=== PATIENT | female | born 1965 | race Caucasian/White ===

== ENCOUNTER 2023-01-29 10:03 | Outpatient (AMB) | payer OTHER, SELFPAY ==
[2023-01-29 10:11] VITALS: PULSE 77; RESP 12; O2SAT 95; BMI 44.5
--- NOTE | 2023-01-29 10:11 | A.OFFVIS_ITS ---
Intake Vital Signs 01/29/23 10:11 Height 5 ft 7 in Weight 284 lb BMI 44.5 Blood Pressure Location Lt brachial Position Sitting Respiration 12 Pulse 77 Pulse Source Pulse Oximeter Pulse Oximetry (%) 95 Oxygen Delivery Method Room Air Intake Visit Reasons: L4-L5 Back Pain / Chronic LT Lumbar Radic / Conf Allergies No Known Allergies Allergy (Verified 01/29/23 10:12) Medication List - Last Reconciled 01/29/23 by Rosalinda Correa LPN alendronate 70 mg PO QWEEK amlodipine 5 mg PO DAILY hydrochlorothiazide 12.5 mg PO DAILY losartan 100 mg PO DAILY tramadol 50 mg PO Q6H PRN HPI L4-L5 Back Pain / Chronic LT Lumbar Radic / Conf HPI Details 57-year-old female who presents today to the office for an evaluation of back pain. She reports constant lower back pain. She had L4 kyphoplasty done by Dr. Escobar last year, which provided relief for about two months. She has difficulty getting up from a bending position. She has difficulty lifting any weight from the ground. Her pain alleviates with standing but worsens with sitting down. She had an MRI scan at [facility]. She did completed physical therapy this year that was not helpful. She has a history of carpal tunnel and underwent EMG on 10/18/22 and was given braces but she is not using it. She is using CPAP machine. She had left eye cataract surgery in September 2022. Pain is localized to the bilateral sacroiliac joint regions. It does not radiate down her extremities. It is rated as 6 to 8/10 in intensity. Obstetric history is notable for 3 vaginal deliveries. [facility], [facility] Medical History (Updated 02/01/23 @ 11:12 by Dragan Ramirez MD) Osteopenia L4 vertebral fracture Retinal detachment Ex-smoker IBS (irritable bowel syndrome) Obesity Chronic venous insufficiency COPD (chronic obstructive pulmonary disease) HTN (hypertension) Review of Systems Const All systems reviewed & are unremarkable except as noted in HPI and below Physical Exam Vital Signs: Last Vital Signs Pulse 77 01/29/23 10:11 Resp 12 01/29/23 10:11 Pulse Ox 95 01/29/23 10:11 Oxygen Delivery Method Room Air 01/29/23 10:11 BMI result Body Mass Index 44.5 General: Appears afebrile. Alert and oriented. Mood and affect appropriate. Follows and participates in conversation appropriately. Respiratory effort is unlabored. Able to transition from sit to stand unassisted. Ambulates with bilaterally normal heel strike and toe off. SI joint provocative testing, including compression and thrusts, are positive on both sides. Lumbar extension and facet loading does not reproduce pain. Results Reviewed Results Reviewed: No imaging is available for review. Assessment & Plan Assessment & Plan (1) Sacroiliac joint dysfunction: Code(s): M53.3 - Sacrococcygeal disorders, not elsewhere classified Plan 57-year-old female with lower back pain likely consistent with sacroiliac joint dysfunction. We will schedule her for diagnostic bilateral sacroiliac joints injections. If those are not as clearly positive, we will consider doing bilateral lumbar diagnostic medial branch blocks. Discussed the risks and benefits of the procedure with the patient in detail. All questions were answered. The patient is on board with the plan. Justification for interventional therapy: ? Patient with average pain > 6/10 ? Patient has exhausted conservative therapy ? Patient unable to tolerate physical therapy due to pain. Scribed for Dr. Ramirez by Daniele Vásquez, medical billing associate, on 01/29/2023. I, Dr. Ramirez, have personally reviewed and agree with the information entered by the scribe. Coding Level of Care Code New Pt Level 4 (56304) Diagnoses Sacroiliac joint dysfunction M53.3
== END 2023-01-29 10:35 | disposition home or self-care (01) ==
PROVIDERS: PCP Internal Medicine; Referring Provider Internal Medicine; Visit Provider Internal Medicine
DX: M53.3 Sacrococcygeal disorders, not elsewhere classified (principal)
CPT/HCPCS: 99204

== ENCOUNTER → 2023-01-29 10:03 | Outpatient (BNVA) | payer OTHER, SELFPAY | PROVIDERS: PCP Internal Medicine; Referring Provider Internal Medicine; Visit Provider Internal Medicine | DX: M53.3 Sacrococcygeal disorders, not elsewhere classified (principal) | CPT/HCPCS: 99202 ==